=== PATIENT | female | born 1995 | race Caucasian/White ===

== ENCOUNTER 2021-01-16 13:35 | Outpatient (REF) | payer OTHER, SELFPAY ==
[2021-01-16 16:24] LABS: MANUAL DIFF FLAG NO
[2021-01-16 16:41] LABS: Basophils Absolute Auto 0.1 X10*3/uL (0.0-0.2); Basophils Percent Auto 0.5 % (0-2); Eosinophils Percent Auto 0.2 % (0-4); Hematocrit 42.1 % (37-47); Hemoglobin 13.3 g/dl (12.0-16.0); Imm Gran Abs Auto 0.05 X10*3/uL (0.00-0.03); Imm Gran Pct Auto 0.5 % (0.0-0.4); Lymphocytes Absolute Auto 2.8 X10*3/uL (1.2-4.9); Lymphocytes Percent Auto 25.1 % (20-40); Mean Corpuscular HGB Conc 31.6 g/dl (31.0-35.0); Mean Corpuscular Hemoglobin 28.7 pg (27.0-33.0); Mean Corpuscular Volume 90.9 fL (80-98); Mean Platelet Volume 10.6 fL (9.4-12.3); Monocytes Absolute Auto 0.4 X10*3/uL (0.1-1.2); Monocytes Percent Auto 3.8 % (2-11); Neutrophils Absolute Auto 7.7 X10*3/uL (2.0-8.3); Neutrophils Percent Auto 69.9 % (45-73); Platelet Count 337 X10*3/uL (160-400); Red Blood Count 4.63 X10*6/uL (4.20-5.50); Red Cell Distribution Width 12.8 % (11.0-16.0)
[2021-01-16 17:05] LABS: Anion Gap 12 (12-20); Blood Urea Nitrogen 15 mg/dL (9-16); Calcium 9.3 mg/dL (8.4-10.2); Carbon Dioxide 28 mmol/L (22-29); Chloride 104 mmol/L (96-108); Estimated Glomerular Filt Rate > 60; Glucose Fasting 77 mg/dL (60-99); Potassium 4.4 mmol/L (3.3-5.1); Sodium 140 mmol/L (135-145)
== END 2021-01-16 13:36 | disposition home or self-care (01) ==
LOC: HO.HMGCLDS 13:35
PROVIDERS: PCP Pediatrics; Visit Provider Nurse Practitioner Family
DX: R55 Syncope and collapse (principal)
CPT/HCPCS: 36415; 80048; 85025